=== PATIENT | male | born 1955 | race Two or more races ===

== ENCOUNTER 2023-01-31 16:17 | Emergency (ER) | payer OTHER, BC ==
[~2023-01-31] VITALS: Ht 162.6 cm; Wt 111.1 kg
[2023-01-31] MEDS ORDERED: OMEPRAZOLE40 MG (17:08)
[2023-01-31] MEDS ORDERED: ADCIRCA20 MG (17:09)
[2023-01-31] MEDS ORDERED: CELECOXIB200 MG (17:09)
[2023-01-31] MEDS ORDERED: ZOLPIDEM TART1.75 MG (17:09)
[2023-01-31] MEDS ORDERED: PAMELOR10 MG (17:10)
[2023-01-31] MEDS ORDERED: PANTOPRAZOLE SO20 MG (17:10)
== END 2023-01-31 22:23 | disposition home or self-care (01) ==
LOC: ER 16:17
DX: N20.1 Calculus of ureter (principal); R10.9 Unspecified abdominal pain